=== PATIENT | male | born 1985 | race African-American/Black ===

== ENCOUNTER 2023-12-30 21:33 | Emergency (ER) | payer SELFPAY ==
[~2023-12-30] VITALS: Ht 188 cm; Wt 82.0 kg
[2023-12-30 21:49] VITALS: BP 138/92; PULSE 86; RESP 16; TEMP 98.2; O2SAT 99
== END 2023-12-31 01:25 | disposition home or self-care (01) ==
LOC: ER 21:33
DX: S71.012D Laceration without foreign body, left hip, subsequent encounter (principal); X58.XXXD Exposure to other specified factors, subsequent encounter
CPT/HCPCS: 12002; 99283